=== PATIENT | male | born 1980 | race Caucasian/White ===

== ENCOUNTER 2018-09-07 10:24 | Inpatient (IN) | payer MEDICAID ==
[~2018-09-07] VITALS: Ht 170.2 cm; Wt 80.1 kg
--- NOTE | 2018-09-07 12:10 | ERD ---
ER Documentation Chief Complaint Chief Complaint C/O H/A, BILATERAL EAR PAIN WITH PRESSURE FOR 5 DAYS, HPI This is a 38-year-old male patient presents emergency room with complaint of left sided head pressure, bilateral tinnitus x5 days. Patient comes to emergency room today as he states when he awoke this morning he now has dizzi ness that he describes as a type of motion sickness. Denies fever, no nausea, no blurred vision, no weakness, no slurred speech. Patient states he has had headaches in the past but they are normally on the right side and feel very different than the headache today. States in 1985 he had head injury where he fell from approximately 6 feet onto a corner of a counter and fractured the left side of his skull, unknown if he had a brain bleed at that time. States 4 years ago he was in [place] and had a CAT scan for headache and was told he had a "cyst." ROS All systems reviewed and are negative except as per history of present illness. Allergies Allergies: Coded Allergies: No Known Allergy (Unverified , 09/07/18) PMhx/Soc History of Surgery: No Anesthesia Reaction: No Hx Neurological Disorder: Yes ("cyst in my brain") Hx Respiratory Disorders: No Hx Cardiac Disorders: No Hx Psychiatric Problems: No Hx Miscellaneous Medical Probl: No Hx Alcohol Use: Yes (Socially) Hx Substance Use: No Hx Tobacco Use: Yes Smoking Status: Current every day smoker FmHx Family History: No diabetes, No coronary disease, No other Physical Exam Vitals Vital Signs Date Temp Pulse Resp B/P (MAP) Pulse Ox O2 O2 Flow FiO2 Time Delivery Rate 09/07/18 97.7 55 18 124/75 99 Room Air 16:17 (91) 09/07/18 98.3 72 18 145/67 97 10:44 (93) Physical Exam Const: No acute distress Head: No bruising, no swelling, no hematoma, no crepitus, no frontal or maxillary sinus tenderness Eyes: Normal Conjunctiva. PERRL, EOMI, no nystagmus ENT: Normal External Ears, TM clear BL, no effusion, Nose no congestion or drainage. Pharynx pink, moist, no petechiae, lesions. Neck: Full range of motion. No meningismus. No cervical spinal tenderness. No lymphadenopathy. Resp: Clear to auscultation bilaterally, no rales, no rhonchi. Chest rise equal bilaterally. Cardio: Regular rate and rhythm, no murmurs Abd: Soft, non tender, non distended. Normal bowel sounds. No bruising. Skin: No petechiae or rashes, no abrasions, no hematomas. Back: No midline or flank tenderness, no point tenderness to spine, FROM Neur: Awake and alert, CN II-XII intact, steady gait, clear speech, no pronator drift, equal smile, BL firer bisque kiln 5/5, sensation diminished on left side of face, negative Romberg, negative [id number]-echu test. Psych: Normal Mood and Affect Result Diagram: 09/07/18 1421 09/07/18 1421 Results 24 hrs Laboratory Tests Test 09/07/18 14:20 09/07/18 14:21 Troponin I < 0.012 ng/ml C-Reactive Protein < 0.5 mg/dl White Blood Count 6.7 10^3/ul Red Blood Count 4.94 10^6/ul Hemoglobin 14.9 g/dl Hematocrit 44.1 % Mean Corpuscular Volume 89.3 fl Mean Corpuscular Hemoglobin 30.2 pg Mean Corpuscular Hemoglobin Concent 33.8 g/dl Red Cell Distribution Width 11.9 % Platelet Count 181 10^3/UL Mean Platelet Volume 10.9 fl Immature Granulocytes % 0.300 % Neutrophils % 52.0 % Lymphocytes % 30.2 % Monocytes % 9.2 % Eosinophils % 7.2 % Basophils % 1.1 % Nucleated Red Blood Cells % 0.0 /100WBC Immature Granulocytes # 0.020 10^3/ul Neutrophils # 3.5 10^3/ul Lymphocytes # 2.0 10^3/ul Monocytes # 0.6 10^3/ul Eosinophils # 0.5 10^3/ul Basophils # 0.1 10^3/ul Nucleated Red Blood Cells # 0.0 10^3/ul Prothrombin Time 13.0 Sec Prothrombin Time Ratio 1.0 INR International Normalized Ratio 0.97 Activated Partial Thromboplast Time 26.3 Sec Sodium Level 143 mmol/L Potassium Level 4.6 mmol/L Chloride Level 107 mmol/L Carbon Dioxide Level 28 mmol/L Anion Gap 8 Blood Urea Nitrogen 19 mg/dl Creatinine 0.84 mg/dl Est Glomerular Filtrat Rate mL/min > 60 mL/min Glucose Level 92 mg/dl Calcium Level 9.7 mg/dl Total Bilirubin 0.5 mg/dl Direct Bilirubin 0.00 mg/dl Indirect Bilirubin 0.5 mg/dl Aspartate Amino Transf (AST/SGOT) 26 IU/L Alanine Aminotransferase (ALT/SGPT) 30 IU/L Alkaline Phosphatase 51 IU/L Total Protein 8.0 g/dl Albumin 4.7 g/dl Globulin 3.30 g/dl Albumin/Globulin Ratio 1.42 Current Medications Medications Dose Sig/Cherelle Start Time Status Last (Trade) Ordered Route PRN Stop Time Admin Dose Reason Admin Sodium 1,000 ml @ Q1H ONCE 09/07/18 DC 09/07/18 Chloride 1,000 mls/hr IV 14:30 14:22 09/07/18 15:29 Procedures/MDM PROCEDURES/MDM EKG: Rate/Rhythm: Sinus bradycardia @ 51 bpm QRS, ST, T-waves: No changes consistent w/ acute ischemia Impression: No evidence of ischemia or arrhythmia DIAGNOSTIC IMAGING: Read by radiologist. CT brain IMPRESSION: 1. No acute intracranial hemorrhage or acute territorial infarct. 2. 2.8 x 2.8 cm of left middle cranial fossa arachnoid cyst with compression of the adjacent temporal lobe, but no significant edema or uncal herniation. 3. Otherwise unremarkable unenhanced CT of the brain MRI Brain IMPRESSION: Contrast-enhanced MRI of the brain demonstrates presence of a left middle cranial fossa arachnoid cyst as described on CT. This is contiguous with a normal in subdural hygroma which measures 3 mm. Smooth dural enhancement overlies this region which may be secondary to altered fluid mechanics. The rest of the brain demonstrates no evidence of dural leptomeningeal or intraparenchymal enhancement. There is posterior mass effect from the arachnoid cyst however the brain is otherwise unremarkable. Patchy bilateral frontal ethmoid and sphenoid mucosal thickening. LAB INTERPRETATION: No leukocytosis, no anemia, no bandemia, no electrolyte disturbance, normal kidney function, no transaminitis, normal PT, PTT -Medications: Normal saline to cover IV contrast. Patient declines pain medicine. -Consultation: Patient evaluated by Dr. Siu. No indication for acute stroke. CT scan of brain indicated due to patient's description of left sided pressure, history of "brain cyst ," and vertigo symptoms. MDM: This is a 38-year-old male patient who presents to the emergency room with complaint of left sided head pressure isolated to temporal region increasing in severity over 5 days. Patient also states he has pressure in his ears with tinnitus and today developed vertigo type symptoms feeling like he had motion sickness. Patient denies fever, no nausea, no nasal congestion, no weakness, no slurred speech, no confusion or ataxia. CT of brain reveals left middle cranial fossa arachnoid cyst with compression of adjacent temporal lobe. This finding necessitated neurosurgery consult with Dr. Redding who recommended MRI with and without contrast. Dr. Manny Ellison contacted with MRI results, recommended admission for further evaluation as findings are concerning and patient needs further work-up. Dr. Carolina to come in to evaluate patient, Dr. Garay to admit patient. Patient informed of decision and agreeable for admission. Patient remained stable without change in neurological symptoms. DISPOSITION and PLAN: Admission for evaluation by neurosurgery and neurology Departure Diagnosis: Primary Impression: Headache Headache type: unspecified Headache chronicity pattern: episodic headache Intractability: intractable Qualified Codes: R51 - Headache Condition: Stable HUYEN COHEN NP Sep 07, 2018 12:10
[2018-09-07] MEDS ORDERED: SOD CHLORIDE 0.9% 1,000 ML IV ONE (14:30)
--- NOTE | 2018-09-07 20:59 | CONS ---
Assessment/Plan Assessment/Plan Problems: (1) Arachnoid cyst Status: Acute Assessment/Plan (Daily) Left middle fossa arachnoid cyst, possibly ruptured. MRI shows signal intensity of hygroma essentially same as CSF on most sequences except FLAIR. 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 SDH is seen in association with arachnoid cysts. He also has a positive finding of pachymeningeal enhancement c/w SDH. I recommend a follow up CT scan. Craniotomy for fenestration of the cyst could be considered, but not indicated emergently unless there is change on his follow up scan. We will check his old records from [facility] if possible to see if the imaging appearance of his cyst has changed. Consultation Date/Type/Reason Admit Date/Time Date of Consultation: Sep 07, 2018 Type of Consult neurosurgery Reason for Consultation left middle cranial fossa arachnoid cyst, subdural hygroma, left pachymeningeal enhancement Date/Time of Note DATE: 09/07/18 TIME: 20:51 Hx of Present Illness 38 year old male with known MCF arachnoid cyst (diagnosed at [facility]) 10 years ago. He had headache promptin reeval ~5 years ago at [facility]. He now presents with increasing sensation of pressure x 5days. CT and MRI in ER demonstrate left MFC arachnoid cyst with enlargerd subdural space and pachymeningeal (unilateral) enhancement. He denies neck pain or stiffness, denies seizure, admits to occ marijuana and ETOH and daily tobacco use. Otherwise healthy & takes no meds. Past Medical History Allergies: Coded Allergies: No Known Allergy (Unverified , 09/07/18) Social History Smoking Status: Current every day smoker Exam/Review of Systems Exam Vitals Vital Signs Date Temp Pulse Resp B/P (MAP) Pulse Ox O2 O2 Flow FiO2 Time Delivery Rate 09/07/18 55 16 121/80 100 Room Air 19:45 (94) 09/07/18 97.7 16:17 Exam Awake alert MAEW 5/5 throughout Face = TML, EOMI PERRL denies hypo- or anaesthesia. Results Result Diagram: 09/07/18 1421 09/07/18 1421 Results 24hrs Laboratory Tests Test 09/07/18 14:20 09/07/18 14:21 Erythrocyte Sedimentation Rate 3 Troponin I < 0.012 C-Reactive Protein < 0.5 White Blood Count 6.7 Red Blood Count 4.94 Hemoglobin 14.9 Hematocrit 44.1 Mean Corpuscular Volume 89.3 Mean Corpuscular Hemoglobin 30.2 Mean Corpuscular Hemoglobin Concent 33.8 Red Cell Distribution Width 11.9 Platelet Count 181 Mean Platelet Volume 10.9 H Immature Granulocytes % 0.300 Neutrophils % 52.0 Lymphocytes % 30.2 Monocytes % 9.2 Eosinophils % 7.2 H Basophils % 1.1 Nucleated Red Blood Cells % 0.0 Immature Granulocytes # 0.020 Neutrophils # 3.5 Lymphocytes # 2.0 Monocytes # 0.6 Eosinophils # 0.5 Basophils # 0.1 Nucleated Red Blood Cells # 0.0 Prothrombin Time 13.0 Prothrombin Time Ratio 1.0 INR International Normalized Ratio 0.97 Activated Partial Thromboplast Time 26.3 Sodium Level 143 Potassium Level 4.6 Chloride Level 107 Carbon Dioxide Level 28 Anion Gap 8 Blood Urea Nitrogen 19 Creatinine 0.84 Est Glomerular Filtrat Rate mL/min > 60 Glucose Level 92 Calcium Level 9.7 Total Bilirubin 0.5 Direct Bilirubin 0.00 Indirect Bilirubin 0.5 Aspartate Amino Transf (AST/SGOT) 26 Alanine Aminotransferase (ALT/SGPT) 30 Alkaline Phosphatase 51 Total Protein 8.0 Albumin 4.7 Globulin 3.30 H Albumin/Globulin Ratio 1.42 DENIS BROOKS MD Sep 07, 2018 20:59
--- NOTE | 2018-09-07 21:40 | QN ---
Documentation Comment Dr. Redding requested a lumbar puncture. Lumbar Puncture by me: Patient consented, time out performed, sterilely prepped/draped, anesthetized locally. Anesthesia: 1% lidocaine locally Location: One interspace below the iliac crest Technique: 20 gauge needle with stylet for entry and removal of needle Results: Clear CSF fluid No post procedure complications, bleeding, numbness or weakness. THANIA SCHNEIDER MD Sep 07, 2018 21:40
--- NOTE | 2018-09-07 21:55 | HP ---
Date/Time of Note Date/Time of Note DATE: 09/07/18 TIME: 21:55 Assessment/Plan VTE Prophylaxis SCD applied (from Nsg): Yes Pharmacological prophylaxis: NA/contraindicated Pharm contraindication: low risk/ambulating Lines/Catheters IV Catheter Type (from Nrsg): Saline Lock Assessment/Plan Hospital Course This is a 38-year-old male being admitted to the ICU floor for: #1Left middle fossa arachnoid cyst: Patient at the current time is hemodynamically stable. He was seen and evaluated by the neurosurgeon . He did review the scans and he is concerned that there may be signs of rupture. And possible findings of subdural hemorrhage. At the current time we will keep the patient in the ICU. N.p.o. after midnight. IV fluid hydration with normal saline. Goal to maintain blood pressure of systolic less than 160. Will obtain a CT of the brain without contrast in the a.m. I have also put in a case management social work consultation for assistance in obtaining MRI results from [facility] in [facility]. The neurosurgeon also requested the ED physician to obtain a lumbar puncture for CSF culture/studies., if this is unable to be performed will consult IR in the a.m. for this #2 DVT GI prophylaxis: SCDs, Protonix Further treatment strategy will be implemented as per the clinical course Greater than 35 minutes critical care time was spent on the care management this patient. Result Diagram: 09/07/18 1421 09/07/18 1421 Results 24hrs Laboratory Tests Test 09/07/18 14:20 09/07/18 14:21 09/07/18 21:01 Erythrocyte Sedimentation Rate 3 Troponin I < 0.012 C-Reactive Protein < 0.5 White Blood Count 6.7 Red Blood Count 4.94 Hemoglobin 14.9 Hematocrit 44.1 Mean Corpuscular Volume 89.3 Mean Corpuscular Hemoglobin 30.2 Mean Corpuscular Hemoglobin Concent 33.8 Red Cell Distribution Width 11.9 Platelet Count 181 Mean Platelet Volume 10.9 H Immature Granulocytes % 0.300 Neutrophils % 52.0 Lymphocytes % 30.2 Monocytes % 9.2 Eosinophils % 7.2 H Basophils % 1.1 Nucleated Red Blood Cells % 0.0 Immature Granulocytes # 0.020 Neutrophils # 3.5 Lymphocytes # 2.0 Monocytes # 0.6 Eosinophils # 0.5 Basophils # 0.1 Nucleated Red Blood Cells # 0.0 Prothrombin Time 13.0 Prothrombin Time Ratio 1.0 INR International Normalized Ratio 0.97 Activated Partial Thromboplast Time 26.3 Sodium Level 143 Potassium Level 4.6 Chloride Level 107 Carbon Dioxide Level 28 Anion Gap 8 Blood Urea Nitrogen 19 Creatinine 0.84 Est Glomerular Filtrat Rate mL/min > 60 Glucose Level 92 Calcium Level 9.7 Total Bilirubin 0.5 Direct Bilirubin 0.00 Indirect Bilirubin 0.5 Aspartate Amino Transf (AST/SGOT) 26 Alanine Aminotransferase (ALT/SGPT) 30 Alkaline Phosphatase 51 Total Protein 8.0 Albumin 4.7 Globulin 3.30 H Albumin/Globulin Ratio 1.42 CSF Tubes Submitted 4 CSF Volume 4.0 CSF Appearance CLEAR CSF Color COLORLESS CSF WBC 1 CSF RBC 0 CSF Cell Count Tube # TUBE#4 CSF Mononuclear Cells % (Auto) 100.0 CSF Polynuclear WBCs (%) 0.0 CSF Glucose 50 CSF Total Protein Pending HPI/ROS Admit Date/Time Admit Date/Time Hx of Present Illness Chief complaint: Headache x5 days This is a 38-year-old male with a past medical history of an arachnoid cyst who presented to the emergency department with complaints of left-sided head pressure and bilateral tinnitus for the last 5 days. He reported that he woke up in the morning with dizziness and he had a motion sickness. He denies any fever nausea vomiting or slurred speech. He does report a pressure sensation on the left side of his head. He reports that in the past at [facility] he had a MRI performed which diagnosed an arachnoid cyst. And then he had a more recent one approximately 4 years ago at [facility] that showed a cyst as well. He denies any problems with his speech or any changes in his strength or gait. Allergies: NKDA Medications: See Apr Const: As per HPI Eyes : No pain discharge or redness or change in visual acuity ENT: No pain, sore throat, congestion, congestion, dysphagia or discharge Respiratory: No shortness of breath, cough, sputum, wheezing, or pleuritic pain Cardiovascular: No chest pain, palpitation, PND, or edema GI : no change in appetite, abdominal pain, nausea, vomiting, diarrhea, constipation, or change in the color his stool Genitourinary: No dysuria, hematuria, flank pain , discharge or CVA tenderness Musculoskeletal: No joint pain, back pain, neck pain, restricted range of motion in neck or joints Skin: No rash, bruising or hives Neuro: As per HPI Endocrine: No polyuria, polydipsia, temperature intolerance Psych: No hallucination, depression, anxiety or suicidal ideation PMH/Family/Social Past Medical History History of arachnoid cyst Coded Allergies: No Known Allergy (Unverified , 09/07/18) Past Surgical History Past Surgical Hx: no surgical history Family History Significant Family History: no pertinent family hx Social History Alcohol Use: none Smoking Status: Current every day smoker Drug Use: none Exam/Review of Systems Vital Signs Vitals Vital Signs Date Temp Pulse Resp B/P (MAP) Pulse Ox O2 O2 Flow FiO2 Time Delivery Rate 09/07/18 98.4 62 18 115/78 97 Room Air 20:45 (90) Exam Exam General: Patient is well-developed well-nourished The patient is alert oriented -3 lying comfortably in bed. HEENT: Atraumatic, normocephalic. The pupils are equal, round and reactive. Extraocular motor are intact Neck: Supple with full range of motion. No rigidity or meningismus Chest: Nontender Lungs: Clear to auscultation bilaterally no crackles rales or wheezing Heart: Normal S1-S2, Regular rhythm and rate. No murmur, S3, or S4 Abdomen: Soft , nontender, nondistended , bowel sounds are present. No guarding no rebound tenderness , No masses or organomegaly. No costovertebral temporal angle mass Extremities: Normal to inspection, no edema no cyanosis Neurologic: Normal mental status, speech normal, cranial nerves II through XII are intact, motor and sensory are intact, he does report some diminished sensation on the left side of his face, strength 5 out of 5 in bilateral upper and lower extremities Additional Comments PROCEDURE: MR Brain with and without contrast. CLINICAL INDICATION: Headache and left eye pressure for 5 days. TECHNIQUE: An MRI of the brain was performed on a [place] short bore high- definition 3 angel scanner utilizing the following sequences: Sagittal and axial T1 weighted, axial T2 weighted, coronal GRE, axial diffusion weighted with ADC mapping, axial FLAIR, and axial, sagittal, and coronal postcontrast T1-weighted. 10 cc of ProHance was given intravenously without complication. COMPARISON: CT brain, same day FINDINGS: Diffusion-weighted images demonstrate normal hyperintensities to suggest acute ischemia or recent infarct. There is no evidence of intracranial hemorrhage, mass effect, or midline shift. Ventricles and sulci are unremarkable except for of the arachnoid cyst along the left middle cranial fossa which results in posterior displacement of the left anterior temporal lobe. The cyst measures 2 x 3.4 cm. No vasogenic edema of the temporal lobe is seen. The arachnoid cyst is contiguous with a subdural fluid collection overlying the left frontal convexity which measures 3 mm. There is slight thinning and smooth dural enhancement overlying this region and over in the arachnoid cyst. No other dural enhancement is present. Incidental cavum velum interpositum cyst is present. The signal abnormality throughout the cerebral white matter brainstem and cerebellum are normal. No hypointense signal abnormalities are seen on the GRE images to suggest the presence of blood degradation products. Normal flow voids are visible in the proximal intracranial arteries and dural sinuses, indicating patency. Visualized paranasal sinuses demonstrate patchy bilateral sphenoid, ethmoid and frontal mucosal thickening. IMPRESSION: Contrast-enhanced MRI of the brain demonstrates presence of a left middle cranial fossa arachnoid cyst as described on CT. This is contiguous with a normal in subdural hygroma which measures 3 mm. Smooth dural enhancement overlies this region which may be secondary to altered fluid mechanics. The rest of the brain demonstrates no evidence of dural leptomeningeal or intraparenchymal enhancement. There is posterior mass effect from the arachnoid cyst however the brain is otherwise unremarkable. Patchy bilateral frontal ethmoid and sphenoid mucosal thickening. RPTAT: [facility] Physician Chris Date Time Electronically viewed and signed by Physician Chris on 09/07/2018 17:34 RL/ CC: HUYEN COHEN NP [id number] PROCEDURE: CT head CLINICAL INDICATION: Left-sided headache and numbness. Vertigo TECHNIQUE: Contiguous 2.5 mm axial images were obtained from the vertex to the skull base. No intravenous contrast was administered. The calculated dose length product (DLP) = 862.24 mGy-cm. The CTDlvol = 48.06 mGy. One or more of the following dose reduction techniques were used: Automated exposure control, adjustment of the mA and or KV according to patient size, or use of iterative reconstruction technique. DICOM images are available. COMPARISON: None FINDINGS: There is no acute intracranial hemorrhage or acute territorial infarct. The 2.8 x 2.8 cm arachnoid cyst in the left middle cranial fossa causing mild compression of the temporal lobe, but no significant edema or uncal herniation. No other intracranial mass or mass effect is identified. Ventricles and cisterns are normal in size and configuration. Edwards-white matter differentiation is within normal limits. Visualized paranasal sinuses are normally aerated. The b susana calvarium is unremarkable. IMPRESSION: 1. No acute intracranial hemorrhage or acute territorial infarct. 2. 2.8 x 2.8 cm of left middle cranial fossa arachnoid cyst with compression of the adjacent temporal lobe, but no significant edema or uncal herniation. 3. Otherwise unremarkable unenhanced CT of the brain RPTAT: HH .Daniele Palacios MD, Date Time Electronically viewed and signed by .Daniele Palacios MD, on 09/07/2018 12:38 .W/ CC: HUYEN COHEN NP [id number] PROCEDURE: XR Chest AP portable CLINICAL INDICATION: Preop TECHNIQUE: An AP portable radiograph of the chest was submitted. COMPARISON: None. FINDINGS: Support Hardware: None Cardiovascular: The cardiovascular silhouette appears unremarkable. Lung Ramirez: The lung ramirez appear clear with no nodule, alveolar infiltrate, or interstitial prominence evident. Pleural Spaces: No pneumothorax or pleural effusion is identified. Osseous Structures: The osseous structures appear intact. Soft Tissues: The soft tissues appear unremarkable. IMPRESSION: Unremarkable portable chest. Physician David Date Time Electronically viewed and signed by Physician David on 09/07/2018 19:20 RH/ CC: THANIA SCHNEIDER MD [id number] SHARNO LEIVA Sep 07, 2018 21:55
[2018-09-07] MEDS ORDERED: HYDROCODONE/APAP (5/325) TAB PO PRN (22:00)
[2018-09-07] MEDS ORDERED: ONDANSETRON 4 MG INJ IV PRN (22:00)
[2018-09-07] MEDS ORDERED: ACETAMINOPHEN 650MG/20.3ML CUP PO PRN (22:00)
[2018-09-07] MEDS ORDERED: BISACODYL (EC) 5 MG TAB PO PRN (22:00)
[2018-09-07] MEDS ORDERED: DOCUSATE SODIUM 100 MG CAP PO PRN (22:00)
[2018-09-07 23:29] VITALS: BP 115/90; PULSE 56; RESP 14
[2018-09-07] MEDS: FAMOTIDINE 20 MG TAB PO SCH (23:50)
[2018-09-07] MEDS: SOD CHLORIDE 0.9% 1,000 ML IV SCH (23:51)
[2018-09-08] VITALS (17 sets, daily range): BP systolic 102–120; BP diastolic 71–95; PULSE 47–79; RESP 9–19; Ht 170.2 cm; Wt 80.1 kg
[2018-09-08] MEDS: FAMOTIDINE 20 MG TAB PO SCH (09:12)
[2018-09-08] MEDS: SOD CHLORIDE 0.9% 1,000 ML IV SCH (11:12)
--- NOTE | 2018-09-08 16:18 | PDOCDIS ---
Discharge Instructions DIAGNOSIS Discharge Diagnosis Arachnoid cyst CONDITION [id number] Patient Condition: [id number] Stable FOLLOW UP/APPOINTMENTS Follow-up Plan Make an appointment to see Dr Redding in clinic in the next 1-2 weeks CARO THURSTON MD Sep 08, 2018 16:18
--- NOTE | 2018-09-08 17:43 | DS ---
Date/Time of Note Date/Time of Note DATE: 09/08/18 TIME: 17:43 Discharge Summary Admission/Discharge Info Admit Date/Time Sep 07, 2018 at 19:26 Discharge Date/Time Discharge Diagnosis Arachnoid cyst Patient Condition: Stable Hospital Course Found to have arachnoid cyst on imaging. He was seen by neurosurgeon Dr Redding who cleared patient for discharge wt plan to see him in clinic Home Meds No Active Prescriptions or Reported Meds Follow-up Plan Make an appointment to see Dr Redding in clinic in the next 1-2 weeks Primary Care Provider Care Physician No Primary Pending Labs Laboratory Tests Test 09/07/18 21:01 CSF Tubes Submitted 4 CSF Volume 4.0 ml CSF Appearance CLEAR CSF Color COLORLESS CSF WBC 1 /cmm (0-10) CSF RBC 0 /uL (0-0) CSF Cell Count Tube # TUBE#4 CSF Mononuclear Cells % (Auto) 100.0 % CSF Polynuclear WBCs (%) 0.0 % CSF Glucose 50 mg/dl (50-80) CSF Total Protein 67 mg/dl (12-60) Microbiology Date/Time Source Procedure Growth Status 09/07/18 21:01 Cerebrospinal Fluid Gram Stain - Final Resulted 09/07/18 21:01 Cerebrospinal Fluid CSF Culture - Preliminary Resulted CARO THURSTON MD Sep 08, 2018 17:43
== END 2018-09-08 19:45 | disposition home or self-care (01) | DRG 92 ==
LOC: FTE 10:24 → ICU 19:26
PROVIDERS: ADMIT Family Medicine; ATTEND Internal Medicine
PROC: 009U3ZX Drainage of Spinal Canal, Percutaneous Approach, Diagnostic (ICD-10-PCS; principal; 2018-09-07)
DX: G93.0 Cerebral cysts (principal); G96.0 Cerebrospinal fluid leak
CPT/HCPCS: 70450; 70553; 71045; 80053; 82945; 83036; 84157; 84484; 85025; 85610; 85651; 85730; 86140; 87070; 87081; 89051; 93005; 96360; 96361; J7030